=== PATIENT | male | born 1980 | race Caucasian/White ===

== ENCOUNTER 2022-05-22 18:13 | Emergency (ER) | payer SELFPAY ==
[2022-05-22 20:16] LABS: C. TRACHOMATIS BY PCR NOT DETECTED; N. GONORRHOEAE BY PCR NOT DETECTED
[2022-05-22] MEDS ORDERED: cefTRIAXone 500 MG in Lidocaine 1% 1 ML IM ONE (20:18)
[2022-05-22] MEDS ORDERED: Doxycycline 100 MG Cap PO ONE (20:21)
== END 2022-05-22 20:46 | disposition home or self-care (01) ==
LOC: MW.ED 18:13
DX: R30.0 Dysuria (principal); Z88.0 Allergy status to penicillin
CPT/HCPCS: 81003; 87491; 87591; 96372; 99283; A9270; J0696